=== PATIENT | female | born 1960 | race Caucasian/White ===

== ENCOUNTER 2021-06-20 13:49 | Outpatient (REF) | payer MEDICARE, MEDICAID, SELFPAY ==
--- NOTE | ~2021-06-20 | CT_ITS ---
EXAMINATION: CT ABDOMEN AND PELVIS WITH CONTRAST CLINICAL INFORMATION: Right lower quadrant pain, rule out appendicitis. COMPARISON: CT chest 08/28/2015 TECHNIQUE: Multidetector volumetric images were obtained from the superior aspect of the liver through the pubic symphysis following administration 85 mL of Omnipaque 350 intravenous contrast. Sagittal and coronal reformatted images were obtained on the technologist's workstation. Oral contrast: No This CT examination was performed using dose optimization techniques as appropriate, variously including the following: *Automated exposure control *Adjustment of mA and/or kV according to patient size (this includes techniques or standardized protocols for targeted exams where dose is matched to indication/reason for exam; i.e. extremities or head) *Use of iterative reconstruction technique DLP: 618 mGy-cm FINDINGS: LUNG BASES: The visualized lung bases are unremarkable. Right basilar atelectasis is present. LIVER, GALLBLADDER, AND BILIARY TREE: The liver is normal in size, shape, and attenuation. No focal hepatic lesion or biliary ductal dilatation is present. The gallbladder is unremarkable with no evidence of radiopaque gallstones, gallbladder wall thickening, or obvious pericholecystic inflammatory changes. PANCREAS: Unremarkable. SPLEEN: Unremarkable. ADRENAL GLANDS: Unremarkable. KIDNEYS AND URETERS: The kidneys are normal in size, shape, and attenuation. No hydronephrosis, hydroureter, or calculi seen. No perinephric stranding. BLADDER: Unremarkable. GASTROINTESTINAL TRACT: The small and large bowel are unremarkable. The appendix is unremarkable. ABDOMINAL WALL: No significant hernia is appreciated. A tiny periumbilical hernia is seen. LYMPH NODES: No retroperitoneal lymphadenopathy. VASCULAR: Calcific plaque is present in the aorta. No aneurysm or stenosis. The celiac SMA and LANCE are patent. Single renal arteries bilaterally are patent. PELVIC VISCERA: Surgically removed. OSSEOUS STRUCTURES: Unremarkable. CT/CT abdomen pelvis w con IMPRESSION: Cause for the patient's right lower quadrant pain has not been found. The appendix is normal. Fleischner guidelines were followed.
[2021-06-20] MEDS: iohexoL 350 MG/ML 100 ML INFUS..BTL IV (16:16)
[2021-06-20] MEDS: Barium Sulfate Oral (Vanilla) 450 ML ORAL.SUSP 900 ML PO (16:16)
== END 2021-06-20 13:50 | disposition home or self-care (01) ==
LOC: HO.CT 13:49
PROVIDERS: PCP Family Medicine; Visit Provider Nurse Practitioner
DX: R10.84 Generalized abdominal pain (principal); R10.11 Right upper quadrant pain; R14.0 Abdominal distension (gaseous)
CPT/HCPCS: 74177; Q9967

== ENCOUNTER → 2021-07-30 08:19 | Outpatient (BNVA) | payer MEDICARE, MEDICAID, SELFPAY | PROVIDERS: PCP Family Medicine; Visit Provider Anesthesiology | DX: M79.7 Fibromyalgia (principal) | CPT/HCPCS: 99202 ==

== ENCOUNTER → 2021-09-26 13:16 | Outpatient (BNVA) | payer MEDICARE, MEDICAID, SELFPAY | PROVIDERS: PCP Family Medicine; Visit Provider Anesthesiology | DX: M79.7 Fibromyalgia (principal); G47.33 Obstructive sleep apnea (adult) (pediatric); Z99.89 Dependence on other enabling machines and devices | CPT/HCPCS: 99212 ==

== ENCOUNTER → 2021-12-27 13:18 | Outpatient (BNVA) | payer MEDICARE, MEDICAID, SELFPAY | PROVIDERS: PCP Family Medicine; Visit Provider Internal Medicine | DX: M79.7 Fibromyalgia (principal); M96.1 Postlaminectomy syndrome, not elsewhere classified; M54.12 Radiculopathy, cervical region | CPT/HCPCS: 99212 ==

== ENCOUNTER 2022-01-04 10:17 | Outpatient (REF) | payer MEDICARE, MEDICAID, SELFPAY ==
--- NOTE | ~2022-01-04 | MR_ITS ---
EXAMINATION: MR CERVICAL SPINE WITHOUT CONTRAST CLINICAL INFORMATION: 61-year-old with self-reported neck pain and bilateral cervical radicular symptoms. History of previous cervical spine fusions. COMPARISON: None TECHNIQUE: MRI of the cervical spine was obtained using routine sequences without contrast. FINDINGS: ALIGNMENT: The cervical spine is anatomically aligned. No spondylolisthesis or retrolisthesis. CRANIOCERVICAL JUNCTION/C1-C2 ARTICULATIONS: Intact and aligned. VISUALIZED INTRACRANIAL STRUCTURES: Limited visualization. Grossly unremarkable. VERTEBRAL BODIES: Vertebral body heights are well maintained. DISC SPACES AND ENDPLATES: Status post ACDF procedure at the C5-C6 level with metallic hardware artifact noted anteriorly consistent with an anterior plate and screws. Severe disc space height loss with disc desiccation at this level is noted. There is evidence of a previous interbody fusion at C6-C7 with solid osseous bony bridging across the disc space with small zones of ferromagnetic artifact consistent with previous surgery. Otherwise the remaining cervical intervertebral disc space heights are well maintained. Minor anterior marginal spondylosis at C3-C4 and C4-C5. BONE MARROW: Limited assessment with ferromagnetic artifact at C5-C6. Within these limitations, no significant marrow replacing process or bone marrow edema is identified. C2-C3: No disc herniation or canal stenosis. Minor facet arthrosis on the left without significant neural foraminal stenosis. C3-C4: No disc herniation or canal stenosis. Mild facet arthropathy on the left without significant neural foraminal stenosis. C4-C5: No disc herniation or canal stenosis. No significant DJD or neural foraminal stenosis. C5-C6: Status post ACDF with posterolateral osteophytic ridging without significant spinal canal stenosis. No significant neural foraminal stenosis. C6-C7: Status post ACDF with no significant canal or neural foraminal stenosis. C7-T1: No disc herniation or spinal canal stenosis. Moderate left-sided facet arthropathy noted with mild left-sided neural foraminal stenosis. T1-T2: No disc herniation or canal stenosis. Mild ligamentum flavum thickening and facet arthropathy noted without significant canal or neural foraminal stenosis. SPINAL CORD: The cervical and visualized upper thoracic spinal cord is normal in morphology, caliber and signal intensity throughout. EXTRACRANIAL SOFT TISSUES: The visualized paravertebral soft tissues are remarkable for loss of the normal signal void in the left vertebral artery. This could reflect severe stenosis or occlusion of the left vertebral artery. Cannot exclude dissection as an etiology. If clinically warranted, CT angiography may be done to further assess this. MR/MR cervical spine wo con IMPRESSION: 1. Status post ACDF procedures at C5-C6 and C6-C7 as described above. 2. Minor spondylosis at C3-C4 and C4-C5. No disc herniations or spinal canal stenosis. Yyiv-[id number] degrees of facet arthropathy are noted with mild left-sided neural foraminal stenosis at C7-T1 as detailed by level above. 3. Absence of the normal signal void in the left vertebral artery. Consider CT angiography to further assess for the possibility of a severe stenosis, dissection or occlusion of the left vertebral artery. The [facility] staff will call to confirm receipt of this report with acknowledgement of the findings and any recommendations.
== END 2022-01-04 10:18 | disposition home or self-care (01) ==
LOC: HO.MRI 10:17
PROVIDERS: Visit Provider Internal Medicine
DX: M54.12 Radiculopathy, cervical region (principal); M96.1 Postlaminectomy syndrome, not elsewhere classified
CPT/HCPCS: 72141

== ENCOUNTER → 2022-01-25 11:37 | Outpatient (BNVA) | payer MEDICARE, MEDICAID, SELFPAY | PROVIDERS: PCP Family Medicine; Visit Provider Nurse Practitioner Family | DX: M47.22 Other spondylosis with radiculopathy, cervical region (principal); M96.1 Postlaminectomy syndrome, not elsewhere classified; M79.7 Fibromyalgia | CPT/HCPCS: 99212 ==